=== PATIENT | male | born 1985 | race Caucasian/White ===

== ENCOUNTER 2018-04-12 08:12 | Emergency (ER) | payer BC ==
[~2018-04-12] VITALS: Ht 182.9 cm; Wt 127.2 kg
[2018-04-12] MEDS ORDERED: FLOXIN OTIC SOLN5 ML LEFT EAR (08:37)
[2018-04-12] MEDS ORDERED: CEFDINIR300 MG PO (08:37)
[2018-04-12 08:50] VITALS: BP 135/85
== END 2018-04-12 08:51 | disposition home or self-care (01) ==
LOC: EME 08:12
DX: H66.92 Otitis media, unspecified, left ear (principal); H60.502 Unspecified acute noninfective otitis externa, left ear; L29.9 Pruritus, unspecified; T36.0X5A Adverse effect of penicillins, initial encounter
CPT/HCPCS: 99281; 99284